=== PATIENT | male | born 1990 | race Two or more races ===

== ENCOUNTER 2024-05-01 17:27 | Emergency (ER) | payer OTHER ==
[~2024-05-01] VITALS: Ht 174 cm; Wt 83.9 kg
[2024-05-01] MEDS ORDERED: FAMOTIDINE/PF 20 MG/2 ML VIAL IV PUSH STA (17:54)
[2024-05-01] MEDS ORDERED: FAMOTIDINE/PF 20 MG/2 ML VIAL ONE (18:03)
[2024-05-01] MEDS ORDERED: ACETAMINOPHEN 500 MG GEL..CAP PO ONE (18:03)
[2024-05-01 18:35] LABS: HEMOGLOBIN 14.5 g/dL (13-16.00); MEAN CELL VOLUME 86.5 fL (80.0-100.00); MEAN CORPUSCULAR HEMOGLOBIN 29.8 pg (27.00-32.0); MEAN CORPUSCULAR HGB CONC 34.4 g/dl (32.0-36.0); PLATELET COUNT 161 K/uL (150-450); RED BLOOD COUNT 4.86 M/uL (4.00-6.00); RED CELL DISTRIBUTION WIDTH 13.3 % (11.5-14.5)
[2024-05-01] MEDS ORDERED: 0.9 % SODIUM CHLORIDE 1,000 ML IV ONE (18:45)
[2024-05-01 18:54] LABS: ALBUMIN 3.8 gm/dL (3.4-5.0); BILIRUBIN TOTAL 0.81 mg/dL (0.3-1.2); CALCIUM 9.3 mg/dL (8.5-10.1); CREATININE SERUM 1.07 mg/dL (0.70-1.30); GFR 80.61; POTASSIUM 3.21 mEq/L (3.5-5.1); TOTAL PROTEIN 7.8 gm/dL (6.4-8.2)
== END 2024-05-01 20:25 | disposition home or self-care (01) ==
LOC: ER 17:30
PROVIDERS: General Practice
DX: J10.1 Influenza due to other identified influenza virus with other respiratory manifestations (principal); R50.9 Fever, unspecified; Z20.822 Contact with and (suspected) exposure to COVID-19